=== PATIENT | female | born 1950 | race Caucasian/White ===

== ENCOUNTER → 2016-09-09 | Outpatient (CLI) | payer OTHER ==
--- NOTE | ~2016-09-09 | MY11 ---
[facility] A Service of [facility] RADIOLOGY TEXT RESULTS PATIENT: GENOVEVA DUENAS LOCATION: [facility] : 48 UNIT #: [id number] AGE: [address]: Violeta Solis MD SEX: F ORDER DR: [id number] [place] [id number] [facility]. [place], [place] [address] [id number] O MR#: [id number] Acc #: [id number] NAME: GENOVEVA DUENAS : 1950 SEX: F STUDY DATE/TIME: 09/09/2016 10:32 UNIT: [facility] ROOM: STUDY DESCRIPTION: MY Mammogram Screening Dig Prabhjot Attending Physician: Violeta Solis M.D. Referring Physician: Violeta Solis M.D. Ordering Physician: Violeta Solis M.D. Primary Care Physician: Violeta Solis M.D. MEDICAL IMAGING REPORT This report is preliminary unless electronic signature is present EXAM Bilateral digital screening mammogram CAD 09/09/2016 INDICATION 65-year-old female for routine screening. No reported problems and no personal or family history of breast cancer. No surgeries. TECHNIQUE CC and MLO views of the breast were obtained and reviewed with an FDA-approved CAD device. COMPARISONS 10/18/2014, 02/24/2012 FINDINGS Breast parenchyma is predominantly fatty-replaced. The pattern is unchanged. There is no new dominant nodule, mass, or suspicious clustered microcalcifications. IMPRESSION 1. Negative screening mammogram. 1-year follow-up recommended. Patient's over the age of 40 are entered into a reminder system with target due date for the next mammogram. BIRADS: 1 Negative STAT * RESULT Dictated by... Maxime Gregorio M.D. THIS IS AN ELECTRONICALLY VERIFIED REPORT [facility] A Service of [facility] RADIOLOGY TEXT RESULTS PATIENT: GENOVEVA DUENAS [id number] : [birth year] UNIT #: [id number] AGE: [address]: Violeta Solis MD SEX: F ORDER DR: Maxime Gregorio M.D. at 09/19/2016 3:38 PM Nick TD: 09/19/2016 09:33 JOB #: [id number] MEDICAL IMAGING REPORT COPY
== END | disposition home or self-care (01) ==
LOC: CWCC 09:52
DX: Z12.31 Encounter for screening mammogram for malignant neoplasm of breast (principal)
CPT/HCPCS: G0202

== ENCOUNTER → 2016-12-08 | Outpatient (CLI) | payer OTHER ==
--- NOTE | ~2016-12-08 | BD1 ---
[facility] A Service of [facility] RADIOLOGY TEXT RESULTS PATIENT: GENOVEVA DUENAS LOCATION: [facility] : 48 UNIT #: [id number] AGE: [address]: Violeta Solis MD SEX: F ORDER DR: [id number] [facility] [address] [facility]. [place], [place] [address] [id number] O MR#: [id number] Acc #: [id number] NAME: GENOVEVA DUENAS : 1950 SEX: F STUDY DATE/TIME: 12/08/2016 10:36 UNIT: [facility] ROOM: STUDY DESCRIPTION: BD Dexa Bone Dens 1+ Site Attending Physician: Violeta Solis M.D. Ordering Physician: Violeta Solis M.D. Primary Care Physician: Violeta Solis M.D. MEDICAL IMAGING REPORT This report is preliminary unless electronic signature is present EXAM DXA scan. DATE 12/08/2016 HISTORY 66-year-old postmenopausal female for osteoporosis screening. COMPARISON None FINDINGS L1-L4 total bone mineral density is 1.092 g/cm2 with a T-score 0.4 and Z-score 2.3, within normal limits. Left femoral neck bone mineral density is 0.495 g/cm2 with a T-score -3.2 and a Z-score -1.6, corresponding to the range of osteoporosis. IMPRESSION 1. Osteoporosis in the left femoral neck. This stratifies the patient at increased risk for fracture. Appropriate medical therapy is advised. 2. Normal bone mineral density within the lumbar spine. Dictated by... Radha Raymond M.D. THIS IS AN ELECTRONICALLY VERIFIED REPORT Radha Raymond M.D. at 12/11/2016 8:30 AM LLH/tmw [facility] A Service of [facility] RADIOLOGY TEXT RESULTS PATIENT: GENOVEVA DUENAS LOCATION: [facility] : 48 UNIT #: [id number] AGE: [address]: Violeta Solis MD SEX: F ORDER DR: TD: 12/08/2016 15:09 JOB #: [id number] MEDICAL IMAGING REPORT Page 1 of 1 COPY
== END | disposition home or self-care (01) ==
LOC: CWCC 09:19
DX: M81.0 Age-related osteoporosis without current pathological fracture (principal)
CPT/HCPCS: 77080

== ENCOUNTER → 2016-12-08 | Outpatient (CLI) | payer OTHER ==
[2016-12-08 10:10] LABS: HEMATOCRIT 35.7 % (35.0-45.0); HEMOGLOBIN 11.6 gm/dL (12.0-16.0); MEAN CELL VOLUME 82.2 FL (83-96); MEAN CORPUSCULAR HEMOGLOBIN 26.6 PG (28-34); MEAN CORPUSCULAR HGB CONC 32.4 g/dL (30-36); MEAN PLATELET VOLUME 8.6 FL (6.5-11.5); RED BLOOD COUNT 4.34 X10e (3.90-5.30); RED CELL DISTRIBUTION WIDTH 16.5 % (11.0-15.5); WHITE BLOOD COUNT 7.7 X10e3 (4.0-10.5)
[2016-12-08 11:03] LABS: ALBUMIN SERUM 3.2 g/dL (3.5-5.0); BILIRUBIN,TOTAL 0.4 mg/dL (0.2-2.0); BUN/CREATININE RATIO 21.42; CALCIUM SERUM 8.1 mg/dL (8.4-10.2); CREATININE SERUM 0.7 mg/dL (0.6-1.4); GLOM FILT RATE Estimated 89.7 mL/min (>60); POTASSIUM 3.5 mmol/L (3.5-5.1); PROTEIN TOTAL SERUM 6.4 g/dL (6.0-8.3)
[2016-12-08 11:29] LABS: FOLATE (FOLIC ACID) 5.6 ng/mL (>5.8)
== END | disposition home or self-care (01) ==
LOC: CLAB 09:30
PROVIDERS: Physician Assistant Medical
DX: E11.9 Type 2 diabetes mellitus without complications (principal); I10 Essential (primary) hypertension; E78.5 Hyperlipidemia, unspecified; E55.9 Vitamin D deficiency, unspecified; I48.0 Paroxysmal atrial fibrillation; R53.83 Other fatigue
CPT/HCPCS: 36415; 80053; 80061; 82306; 82607; 82746; 83036; 84443; 85027